=== PATIENT | male | born 1980 | race Caucasian/White ===

== ENCOUNTER 2017-09-29 23:20 | Emergency (ER) | payer BC ==
[~2017-09-29] VITALS: Ht 185.4 cm; Wt 81.7 kg
[2017-09-29 23:27] VITALS: BP 121/77
[2017-09-29] MEDS ORDERED: DICLOFENAC SODI75 MG PO (23:29)
[2017-09-29] MEDS ORDERED: TERBINAFINE HC250 MG PO (23:30)
[2017-09-29] MEDS ORDERED: FLEXERIL PO (23:38)
[2017-09-29] MEDS ORDERED: LIORESAL 10 MG10 MG PO (23:38)
== END 2017-09-29 23:48 | disposition home or self-care (01) ==
LOC: M.ERS 23:20
DX: M25.512 Pain in left shoulder (principal); F17.210 Nicotine dependence, cigarettes, uncomplicated

== ENCOUNTER → 2017-10-14 | Outpatient (CLI) | payer BC ==
[~2017-10-14] MED LIST: DICLOFENAC SODI75 MG PO; FLEXERIL PO; LIORESAL 10 MG10 MG PO; TERBINAFINE HC250 MG PO
== END ==
LOC: M.RAD 08:57
DX: M54.2 Cervicalgia (principal); M79.602 Pain in left arm; M25.512 Pain in left shoulder

== ENCOUNTER 2019-03-22 02:59 | Emergency (ER) | payer BC ==
[~2019-03-22] VITALS: Ht 185.4 cm; Wt 79.4 kg
[2019-03-22 03:58] LABS: ABSOLUTE BASOPHILS 0.1 thou/uL (0.0-0.2); ABSOLUTE EOSINOPHILS 0.4 thou/uL (0.0-0.7); ABSOLUTE LYMPHOCYTES 1.4 thou/uL (0.8-5.3); ABSOLUTE MONOCYTES 0.4 thou/uL (0.0-1.2); ABSOLUTE NEUTROPHILS 4.5 thou/uL (1.6-8.1); BASOPHILS 0.7 %; EOSINOPHILS 5.4 %; HEMATOCRIT 42.3 % (42.0-52.0); HEMOGLOBIN 14.8 gm/dL (14.0-18.0); LYMPHOCYTES 20.7 %; MCH 30.4 pg (26.0-34.0); MCHC 34.9 g/dL (28.0-37.0); MCV 87.1 fL (80.0-100.0); MONOCYTES 5.6 %; MPV 7.8 fl. (7.2-11.1); NUCLEATED RBCS 0 /100WBC; PLATELET COUNT* 220 thou/uL (150-400); POLYS 67.6 %; RBC 4.86 mil/uL (4.50-6.00); WBC 6.7 thou/uL (4.0-11.0)
[2019-03-22 04:13] LABS: CALCIUM 8.5 mg/dL (8.5-10.1); CREATININE 1.1 mg/dL (0.6-1.3); POTASSIUM 3.7 mmol/L (3.5-5.1)
[2019-03-22 04:17] LABS: ALBUMIN 3.4 g/dL (3.4-5.0); TOTAL BILIRUBIN 0.3 mg/dL (<0.1-1.0); TOTAL PROTEIN 6.5 g/dL (6.4-8.2)
[2019-03-22] MEDS ORDERED: ZOFRAN ODT4 MG PO (06:32)
[2019-03-22] MEDS ORDERED: HYDROCODON-ACE1 EAC8 PO (06:32)
[2019-03-22 06:45] VITALS: BP 109/80
--- NOTE | 2019-03-22 09:46 | EKG ---
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1980 Requested By: Jennifer Wharton Order Number: [id number] MD: Steve Miranda Measurements Intervals [place] Rate: 74 P: 72 [place]: 183 QRS: -12 QRSD: 92 T: 70 QT: 373 QTc: 414 Interpretive Statements Sinus rhythm Probable left atrial enlargement RSR' in V1 or V2, right VCD or RVH No previous ECG available for comparison Electronically Signed On 03-22-2019 9:46:27 [employer]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
== END 2019-03-22 06:47 | disposition home or self-care (01) ==
LOC: M.ERS 02:59
PROVIDERS: Emergency Medicine
DX: R10.13 Epigastric pain (principal); F17.210 Nicotine dependence, cigarettes, uncomplicated

== ENCOUNTER 2019-04-16 22:17 | Emergency (ER) | payer BC ==
[~2019-04-16] VITALS: Ht 185.4 cm; Wt 88.5 kg
[~2019-04-16 22:17] MED LIST changes: +HYDROCODON-ACE1 EAC8 PO; +ZOFRAN ODT4 MG PO
[2019-04-16] MEDS ORDERED: PROTONIX40 M2 PO (22:24)
[2019-04-16] MEDS ORDERED: PEPCID20 MG PO (22:25)
[2019-04-16 22:54] LABS: HEMATOCRIT 41.3 % (42.0-52.0); HEMOGLOBIN 14.5 gm/dL (14.0-18.0); MCH 30.7 pg (26.0-34.0); MCHC 35.2 g/dL (28.0-37.0); MCV 87.2 fL (80.0-100.0); MPV 8.3 fl. (7.2-11.1); NUCLEATED RBCS 0 /100WBC; PLATELET COUNT* 217 thou/uL (150-400); RBC 4.74 mil/uL (4.50-6.00); RDW-CV 12.8 % (10.5-14.5); WBC 6.2 thou/uL (4.0-11.0)
[2019-04-16 23:03] LABS: CALCIUM 7.9 mg/dL (8.5-10.1); CREATININE 1.2 mg/dL (0.6-1.3); POTASSIUM 3.9 mmol/L (3.5-5.1)
[2019-04-16 23:08] LABS: ALBUMIN 3.4 g/dL (3.4-5.0); TOTAL BILIRUBIN 0.1 mg/dL (<0.1-1.0); TOTAL PROTEIN 6.6 g/dL (6.4-8.2)
[2019-04-17] LABS: ABSOLUTE EOSINOPHILS 0.4 thou/uL (0.0-0.7); ABSOLUTE LYMPHOCYTES 1.4 thou/uL (0.8-5.3); ABSOLUTE MONOCYTES 0.5 thou/uL (0.0-1.2); ABSOLUTE NEUTROPHILS 3.8 thou/uL (1.6-8.1)
[2019-04-17 00:01] LABS: PLATELET ESTIMATE ADEQUATE
[2019-04-17] MEDS ORDERED: ULTRAM 50MG TAB50 MG PO (00:52)
[2019-04-17] MEDS ORDERED: CARAFATE 1 GM TA1 GM PO (00:52)
[2019-04-17 00:58] VITALS: BP 117/80
== END 2019-04-17 00:58 | disposition home or self-care (01) ==
LOC: M.ERS 22:17
PROVIDERS: Personal Emergency Response Attendant
DX: R10.13 Epigastric pain (principal); F17.210 Nicotine dependence, cigarettes, uncomplicated

== ENCOUNTER → 2020-09-10 | Outpatient (CLI) | payer OTHER ==
[~2020-09-10] MED LIST changes: +CARAFATE 1 GM TA1 GM PO; +PEPCID20 MG PO; +PROTONIX40 M2 PO; +ULTRAM 50MG TAB50 MG PO
== END ==
LOC: M.CT 08:24
PROVIDERS: ATTEND Internal Medicine Cardiovascular Disease
DX: Z13.6 Encounter for screening for cardiovascular disorders (principal)

== ENCOUNTER → 2020-12-17 | Outpatient (CLI) | payer BC | LOC: M.LAB 08:32 | PROVIDERS: ATTEND Surgery | DX: Z01.812 Encounter for preprocedural laboratory examination (principal); Z20.822 Contact with and (suspected) exposure to COVID-19 ==